=== PATIENT | male | born 2000 | race Caucasian/White ===

== ENCOUNTER 2021-04-13 19:02 | Emergency (ER) | payer SELFPAY ==
[~2021-04-13 19:02] MED LIST: IBUPROFEN800 MG PO; ONDANSETRON ODT4 MG SL; PERCOCET 5-3251 EACH PO
[2021-04-13 20:38] LABS: BASOPHIL 0.5 % (0-2); EOSINOPHIL 0.5 % (0-5); HCT 43.1 % (42.0-52.0); HGB 14.3 g/dl (13.2-18.0); LYMPHOCYTE 15.9 % (15-48); MCH 29.5 pg (25.0-31.0); MCHC 33.2 g/dL (32.0-36.0); MONOCYTE 8.4 % (0-12); MPV 9.2 fL (6.0-9.5); NEUTROPHIL 74.2 % (41-80); NRBC 0; PLT 346 K/uL (150-400); RBC 4.84 M/uL (4.70-6.00); RDW 13.1 % (11.5-14.0); WBC 8.5 K/uL (4.0-10.5)
[2021-04-13 20:55] LABS: ALBUMIN 3.6 g/dL (3.4-5.0); BILIRUBIN - TOTAL 0.3 mg/dL (0.2-1.0); BUN/CREAT RATIO (CALC) 13.9 RATIO; CREATININE 0.72 mg/dL (0.67-1.17); TOTAL PROTEIN 7.6 g/dL (6.4-8.2)
[2021-04-13] MEDS ORDERED: ZOFRAN4 M1 PO (21:18)
== END 2021-04-13 21:25 | disposition home or self-care (01) ==
LOC: FER 19:02
PROVIDERS: Emergency Medicine
DX: R11.2 Nausea with vomiting, unspecified (principal); I10 Essential (primary) hypertension; J45.909 Unspecified asthma, uncomplicated; F17.210 Nicotine dependence, cigarettes, uncomplicated
CPT/HCPCS: 36415; 80053; 85025; J1885; J2270; J2405; J7030

== ENCOUNTER 2021-04-17 20:54 | Emergency (ER) | payer SELFPAY ==
[~2021-04-17 20:54] MED LIST changes: +ZOFRAN4 M1 PO
[2021-04-17 22:32] LABS: BASOPHIL 0.4 % (0-2); EOSINOPHIL 1.4 % (0-5); HCT 36.7 % (42.0-52.0); HGB 12.1 g/dl (13.2-18.0); LYMPHOCYTE 6.3 % (15-48); MCH 29.4 pg (25.0-31.0); MCV 89.3 fL (78.0-100.0); MONOCYTE 7.3 % (0-12); MPV 9.9 fL (6.0-9.5); NRBC 0; PLT 209 K/uL (150-400); RBC 4.11 M/uL (4.70-6.00); RDW 13.1 % (11.5-14.0); WBC 13.6 K/uL (4.0-10.5)
[2021-04-17 22:54] LABS: ALBUMIN 2.6 g/dL (3.4-5.0); BUN/CREAT RATIO (CALC) 7.5 RATIO; CREATININE 0.67 mg/dL (0.67-1.17); GLOBULIN (CALCULATION) 4.2 g/dL; POTASSIUM 3.5 mmol/L (3.5-5.1); TOTAL PROTEIN 6.8 g/dL (6.4-8.2)
[2021-04-17 22:58] LABS: BILIRUBIN 2+ mg/dL (NEGATIVE); BLOOD TRACE-INTACT Ery/uL (NEGATIVE); CLARITY CLEAR (CLEAR); COLOR YELLOW (YELLOW); GLUCOSE (U) NORMAL (NORMAL); LEUKOCYTES NEGATIVE Leu/uL (NEGATIVE); NITRITE NEGATIVE (NEGATIVE); PROTEIN TRACE (LOW) mg/dL (NEGATIVE); pH 8.5 (5.0-9.0)
[2021-04-17 22:58] LABS: BILIRUBIN - TOTAL 2.3 mg/dL (0.2-1.0)
[2021-04-17 23:03] LABS: AMPHETAMINES NEGATIVE (NEGATIVE); BARBITURATES NEGATIVE (NEGATIVE); ECSTASY (MDMA) NEGATIVE (NEGATIVE); MARIJUANA (THC) POSITIVE (NEGATIVE); METHADONE NEGATIVE (NEGATIVE); OPIATES NEGATIVE (NEGATIVE); OXYCODONE NEGATIVE (NEGATIVE)
[2021-04-18] MEDS ORDERED: ZOFRAN4 M1 PO (03:22)
== END 2021-04-18 03:57 | disposition home or self-care (01) ==
LOC: FER 20:54
PROVIDERS: Nurse Practitioner Family
DX: K85.90 Acute pancreatitis without necrosis or infection, unspecified (principal); I10 Essential (primary) hypertension; F17.210 Nicotine dependence, cigarettes, uncomplicated
CPT/HCPCS: 36415; 80053; 80305; 81001; 83690; 85025; J2270; J7030; Q9967

== ENCOUNTER 2021-12-06 16:05 | Emergency (ER) | payer MEDICAID | END 2021-12-06 18:01 | disposition home or self-care (01) | LOC: FER 16:05 | DX: F11.10 Opioid abuse, uncomplicated (principal) | CPT/HCPCS: 99284 ==

== ENCOUNTER 2022-04-23 11:53 | Emergency (ER) | payer OTHER ==
[2022-04-23 12:44] LABS: BASOPHIL 0.4 % (0-2); EOSINOPHIL 0.6 % (0-5); HCT 44.4 % (42.0-52.0); HGB 14.9 g/dl (13.2-18.0); LYMPHOCYTE 12.5 % (15-48); MCH 27.3 pg (25.0-31.0); MCHC 33.6 g/dL (32.0-36.0); MCV 81.3 fL (78.0-100.0); MONOCYTE 4.4 % (0-12); MPV 9.6 fL (6.0-9.5); NEUTROPHIL 81.6 % (41-80); NRBC 0; PLT 382 K/uL (150-400); RBC 5.46 M/uL (4.70-6.00); RDW 12.5 % (11.5-14.0)
[2022-04-23 13:17] LABS: ALBUMIN 4.3 g/dL (3.4-5.0); BILIRUBIN - TOTAL 0.7 mg/dL (0.2-1.0); BUN/CREAT RATIO (CALC) 17.1 RATIO; CREATININE 0.7 mg/dL (0.67-1.17); GLOBULIN (CALCULATION) 4.7 g/dL; POTASSIUM 3.8 mmol/L (3.5-5.1)
[2022-04-23 14:20] LABS: BILIRUBIN 1+ mg/dL (NEGATIVE); BLOOD NEGATIVE Ery/uL (NEGATIVE); CLARITY HAZY (CLEAR); COLOR YELLOW (YELLOW); GLUCOSE (U) NORMAL (NORMAL); LEUKOCYTES NEGATIVE Leu/uL (NEGATIVE); NITRITE NEGATIVE (NEGATIVE); PROTEIN TRACE (LOW) mg/dL (NEGATIVE)
[2022-04-23 14:27] LABS: AMPHETAMINES NEGATIVE (NEGATIVE); BARBITURATES NEGATIVE (NEGATIVE); ECSTASY (MDMA) NEGATIVE (NEGATIVE); MARIJUANA (THC) POSITIVE (NEGATIVE); METHADONE NEGATIVE (NEGATIVE); OPIATES NEGATIVE (NEGATIVE); OXYCODONE NEGATIVE (NEGATIVE)
[2022-04-23] MEDS ORDERED: ONDANSETRON HCL4 MG PO (15:27)
[2022-04-23 16:21] LABS: SQUAMOUS EPITHELIAL CELLS RARE
== END 2022-04-23 15:54 | disposition home or self-care (01) ==
LOC: FER 11:53
PROVIDERS: Nurse Practitioner Family
DX: F11.90 Opioid use, unspecified, uncomplicated (principal); F17.210 Nicotine dependence, cigarettes, uncomplicated; Z28.310 Unvaccinated for COVID-19
CPT/HCPCS: 36415; 80053; 80305; 81001; 85025; 96372; J2405; J3410; J7030